=== PATIENT | male | born 1960 | race Caucasian/White ===

== ENCOUNTER 2020-09-11 19:56 | Observation (INO) | payer OTHER ==
[~2020-09-11] VITALS: Ht 170.2 cm; Wt 112.8 kg
[~2020-09-11 19:56] MED LIST: Cleocin HCl300 MG PO; FLUSAL2505 INH; IBUP400 PO; MECL12.5 PO; Norco 5-325 Ta1 EACH PO; WARF5 PO; XARELTO10 MG PO
[2020-09-11 20:31] LABS: BASOPHILS ABSOLUTE AUTO 0.02 K/mm3 (0.00-0.23); BASOPHILS PERCENT AUTO 0 % (0-2); EOSINOPHILS ABSOLUTE AUTO 0.01 K/mm3 (0.00-0.68); EOSINOPHILS PERCENT AUTO 0 % (0-6); Hematocrit 50.8 % (37.0-53.0); Hemoglobin 16.6 g/dL (13.5-17.5); IMMATURE GRAN ABSOLUTE AUTO 0.03 K/mm3 (0.00-0.10); IMMATURE GRAN PERCENT AUTO 0 % (0-1); LYMPHOCYTES ABSOLUTE AUTO 0.69 K/mm3 (0.84-5.20); LYMPHOCYTES PERCENT AUTO 10 % (21-46); MONOCYTES ABSOLUTE AUTO 0.57 K/mm3 (0.16-1.47); MONOCYTES PERCENT AUTO 8 % (4-13); Mean Corpuscular HGB 39.7 pg (26.0-34.0); Mean Corpuscular HGB Conc 32.7 g/dL (31.5-36.5); Mean Corpuscular Volume 122 fL (80-100); NEUTROPHILS ABSOLUTE AUTO 5.61 K/mm3 (1.96-9.15); NEUTROPHILS PERCENT AUTO 81 % (41-73); NRBC ABSOLUTE 0.02 K/mm3 (0.00-0.02); NRBC Auto 0.3 /100 WBC (0.0-0.2); Platelet Count 157 K/mm3 (150-400); RDW Coefficient Variation 14.7 % (11.7-14.2); RDW Standard Deviation 68.2 fL (35.1-46.3); Red Blood Cell Count 4.18 M/mm3 (4.30-5.90); White Blood Cell Count 6.93 K/mm3 (4.00-11.30)
[2020-09-11 21:07] LABS: Alanine Aminotransfer (ALT/SGP 25 U/L (12-78); Albumin, Blood 3.6 g/dL (3.4-5.0); Albumin/Globulin Ratio 0.9 (0.8-1.8); Alk Phos 77 U/L (50-136); Anion Gap 5 mmol/L (6-16); Aspartate Aminotrans (AST/SGOT 25 U/L (12-37); Bilirubin, Total 0.8 mg/dL (0.1-1.0); Blood Urea Nitrogen 15 mg/dL (8-24); Bun/Creatinine Ratio 18.6 (12.0-20.0); CO2, Blood 30 mmol/L (21-32); Calcium, Blood 8.6 mg/dL (8.5-10.1); Chloride, Blood 105 mmol/L (98-108); Creatinine, Blood 0.81 mg/dL (0.60-1.20); Globulin, Blood 4.2 g/dL (2.2-4.0); Glomerular Filtration Rate >60 (60-); Glucose, Blood 106 mg/dL (70-99); Potassium, Blood 4.6 mmol/L (3.5-5.5); Sodium, Blood 140 mmol/L (136-145); Total Protein, Blood 7.8 g/dL (6.4-8.2); Troponin I 0.057 ng/mL (0.000-0.040)
[2020-09-11 22:03] LABS: Base Excess Venous 10.4 mmol/L; Bicarbonate Venous 30.9 mmol/L (24.0-30.0); PCO2 Venous 72.1 mmHg (38-42); pH Blood Venous 7.31 (7.34-7.37)
[2020-09-12 04:27] LABS: BASOPHILS ABSOLUTE AUTO 0.02 K/mm3 (0.00-0.23); BASOPHILS PERCENT AUTO 0 % (0-2); EOSINOPHILS ABSOLUTE AUTO 0.06 K/mm3 (0.00-0.68); EOSINOPHILS PERCENT AUTO 1 % (0-6); Hematocrit 49.7 % (37.0-53.0); Hemoglobin 16.3 g/dL (13.5-17.5); IMMATURE GRAN ABSOLUTE AUTO 0.02 K/mm3 (0.00-0.10); IMMATURE GRAN PERCENT AUTO 0 % (0-1); LYMPHOCYTES ABSOLUTE AUTO 1.01 K/mm3 (0.84-5.20); LYMPHOCYTES PERCENT AUTO 17 % (21-46); MONOCYTES ABSOLUTE AUTO 0.53 K/mm3 (0.16-1.47); MONOCYTES PERCENT AUTO 9 % (4-13); Mean Corpuscular HGB 39.9 pg (26.0-34.0); Mean Corpuscular HGB Conc 32.8 g/dL (31.5-36.5); Mean Corpuscular Volume 122 fL (80-100); Mean Platelet Volume 10.4 fL (9.1-12.4); NEUTROPHILS ABSOLUTE AUTO 4.17 K/mm3 (1.96-9.15); NEUTROPHILS PERCENT AUTO 72 % (41-73); Platelet Count 129 K/mm3 (150-400); RDW Coefficient Variation 14.4 % (11.7-14.2); RDW Standard Deviation 66.4 fL (35.1-46.3); Red Blood Cell Count 4.09 M/mm3 (4.30-5.90); White Blood Cell Count 5.81 K/mm3 (4.00-11.30)
--- NOTE | 2020-09-12 04:30 | NUR ---
SHIFT SUMMARY ADMITTED FOR HYPOXIA. FULL CODE. I HAVE GIVEN IV LASIX THIS SHIFT. RT TX'S AVAILABLE. HX: COPD, POLYCYTHEMIA VERA, DVT'S, PE'S. HE IS ON 4 LPM O2 VIA NC, RA @ HOME. HE INFORMS ME THAT HE LIVES ALONE IN HIS [place].
[2020-09-12 04:45] LABS: Alanine Aminotransfer (ALT/SGP 22 U/L (12-78); Albumin, Blood 3.5 g/dL (3.4-5.0); Albumin/Globulin Ratio 0.8 (0.8-1.8); Alk Phos 74 U/L (50-136); Anion Gap 3 mmol/L (6-16); Aspartate Aminotrans (AST/SGOT 19 U/L (12-37); Bilirubin, Total 0.7 mg/dL (0.1-1.0); Blood Urea Nitrogen 14 mg/dL (8-24); CO2, Blood 35 mmol/L (21-32); Calcium, Blood 8.5 mg/dL (8.5-10.1); Chloride, Blood 99 mmol/L (98-108); Creatinine, Blood 0.82 mg/dL (0.60-1.20); Globulin, Blood 4.2 g/dL (2.2-4.0); Glomerular Filtration Rate >60 (60-); Glucose, Blood 96 mg/dL (70-99); Potassium, Blood 4.2 mmol/L (3.5-5.5); Sodium, Blood 137 mmol/L (136-145); Total Protein, Blood 7.7 g/dL (6.4-8.2)
[2020-09-12 04:46] LABS: Troponin I 0.021 ng/mL (0.000-0.040)
[2020-09-12 13:07] LABS: Troponin I 0.016 ng/mL (0.000-0.040)
--- NOTE | 2020-09-13 04:16 | NUR ---
SHIFT SUMMARY ADMITTED FOR HYPOXIA. FULL CODE. TELEMETRY: NSR @ 84 BPM. SLEEP STUDY WAS ATTEMPTED THIS SHIFT BUT PT WAS AWAKE AND CALLING OUT RANDOMLY FOR MOST OF THE SHIFT; SO WE ARE UNSURE OF THE SUCCESS OF THAT ENDEAVOR. AT ONE POINT HE DESATURATED TO 70% AND RT PUT HIM ON 5 LPM O2. HE HAS LABILE MOODS AND HAS DIFFICULTY FOLLOWING/UNDERSTANDING INSTRUCTION. HE REFUSED LASIX ON THE PREVIOUS SHIFT. PLAN IS FOR HOME O2 EVAL, CARDIAC STRESS TEST (INPT VS. OUTPT), AND DIURESIS. HE IS ON XARELTO AND IS ALSO SCHEDULED LOVENOX, WHICH HE HAS EXPRESSED CONCERN OVER HAVING BOTH - REPORTED TO ME FROM PREVIOUS SHIFT.
[2020-09-13 08:31] LABS: Anion Gap 0 mmol/L (6-16); Blood Urea Nitrogen 16 mg/dL (8-24); Bun/Creatinine Ratio 20.9 (12.0-20.0); CO2, Blood 41 mmol/L (21-32); Calcium, Blood 8.8 mg/dL (8.5-10.1); Chloride, Blood 97 mmol/L (98-108); Creatinine, Blood 0.77 mg/dL (0.60-1.20); Glomerular Filtration Rate >60 (60-); Glucose, Blood 117 mg/dL (70-99); Potassium, Blood 4.3 mmol/L (3.5-5.5); Sodium, Blood 138 mmol/L (136-145)
--- NOTE | 2020-09-13 12:45 | NUR ---
DISCHARGE SUMMARY PT AxOx4. DC'ING TO HOME TODAY. DC'ING ON 5L CONT O2 VIA NC. DC INSTRUCTIONS DISCUSSED, INCLUDING DC MEDS/CHANGES AND FOLLOW UP APPOINTMENTS. PT VERBALIZES UNDERSTANDING. [facility] IN ROOM DELIVERING HOME O2. VITALS REVIEWED. PT DENIES PAIN/OTHER NEEDS AT THIS TIME. PT SAFELY ESCORTED OUT VIA WC WITH [employer].
== END 2020-09-13 12:55 | disposition home or self-care (01) ==
LOC: ER 19:56 → MEDS 19:58 → ER 09-12 00:20 → MEDS 09-12 00:20 → ER 09-12 01:25 → MEDS 09-12 02:10
PROVIDERS: Hospitalist; Physician Assistant; Student in an Organized Health Care Education/Training Program; ADMIT Internal Medicine
DX: R09.02 Hypoxemia (principal); R06.89 Other abnormalities of breathing; J44.9 Chronic obstructive pulmonary disease, unspecified; E78.5 Hyperlipidemia, unspecified; D45 Polycythemia vera; R77.8 Other specified abnormalities of plasma proteins; Z86.711 Personal history of pulmonary embolism; Z79.01 Long term (current) use of anticoagulants; Z86.718 Personal history of other venous thrombosis and embolism; Z87.891 Personal history of nicotine dependence
CPT/HCPCS: 36415; 71260; 80048; 80053; 82550; 82803; 83880; 84484; 85025; 93005; 93010; 94640; 94760; 94761; 94762; 96372; 96374; 96376; 99285-25; A9270; C8929; G0378; J1650; J1940; Q9957; Q9967

== ENCOUNTER 2020-09-18 13:56 | Observation (INO) | payer OTHER ==
[~2020-09-18] VITALS: Ht 180.3 cm; Wt 113.3 kg
[2020-09-18 14:42] LABS: BASOPHILS ABSOLUTE AUTO 0.03 K/mm3 (0.00-0.23); BASOPHILS PERCENT AUTO 1 % (0-2); EOSINOPHILS ABSOLUTE AUTO 0.04 K/mm3 (0.00-0.68); EOSINOPHILS PERCENT AUTO 1 % (0-6); Hematocrit 50.4 % (37.0-53.0); Hemoglobin 16.3 g/dL (13.5-17.5); IMMATURE GRAN ABSOLUTE AUTO 0.02 K/mm3 (0.00-0.10); IMMATURE GRAN PERCENT AUTO 0 % (0-1); LYMPHOCYTES ABSOLUTE AUTO 0.58 K/mm3 (0.84-5.20); LYMPHOCYTES PERCENT AUTO 13 % (21-46); MONOCYTES ABSOLUTE AUTO 0.45 K/mm3 (0.16-1.47); MONOCYTES PERCENT AUTO 10 % (4-13); Mean Corpuscular HGB 39.5 pg (26.0-34.0); Mean Corpuscular HGB Conc 32.3 g/dL (31.5-36.5); Mean Corpuscular Volume 122 fL (80-100); Mean Platelet Volume 11.2 fL (9.1-12.4); NEUTROPHILS PERCENT AUTO 75 % (41-73); Platelet Count 140 K/mm3 (150-400); RDW Coefficient Variation 13.1 % (11.7-14.2); RDW Standard Deviation 60.3 fL (35.1-46.3); Red Blood Cell Count 4.13 M/mm3 (4.30-5.90); White Blood Cell Count 4.52 K/mm3 (4.00-11.30)
[2020-09-18 15:07] LABS: Alanine Aminotransfer (ALT/SGP 22 U/L (12-78); Albumin, Blood 3.6 g/dL (3.4-5.0); Albumin/Globulin Ratio 0.9 (0.8-1.8); Alk Phos 58 U/L (50-136); Anion Gap 0 mmol/L (6-16); Aspartate Aminotrans (AST/SGOT 24 U/L (12-37); Blood Urea Nitrogen 12 mg/dL (8-24); Bun/Creatinine Ratio 16.9 (12.0-20.0); CO2, Blood 43 mmol/L (21-32); Calcium, Blood 9.1 mg/dL (8.5-10.1); Chloride, Blood 94 mmol/L (98-108); Creatinine, Blood 0.71 mg/dL (0.60-1.20); Globulin, Blood 4.2 g/dL (2.2-4.0); Glomerular Filtration Rate >60 (60-); Glucose, Blood 109 mg/dL (70-99); Potassium, Blood 4.1 mmol/L (3.5-5.5); Sodium, Blood 137 mmol/L (136-145); Total Protein, Blood 7.8 g/dL (6.4-8.2); Troponin I <0.015 ng/mL (0.000-0.040)
[2020-09-18 16:28] LABS: Base Excess Venous 21.4 mmol/L; Bicarbonate Venous 39.7 mmol/L (24.0-30.0); PCO2 Venous 88.7 mmHg (38-42); PO2 Venous 55.8 mmHg (38-42); pH Blood Venous 7.34 (7.34-7.37)
[2020-09-18 16:49] LABS: Source, Urine Clean Catch
[2020-09-18 16:52] LABS: Appearance, Urine Clear (Clear); Blood, Urine 4+ (Neg); Color, Urine Amber (P-Yellow); Glucose Qualitative, Urine Neg (Neg); Ketones, Urine 4+ (Neg); Leukocyte Esterase, Urine 1+ (Neg); Nitrite, Urine Neg (Neg); Protein, Urine 4+ (Neg); Specific Gravity, Urine 1.015 (1.003-1.022); Urobilinogen, Urine 2+ (Normal)
[2020-09-18 17:02] LABS: Bilirubin, Urine 1+ (Neg)
[2020-09-18 17:04] LABS: Bacteria Mod /hpf; Hyaline Casts 0-2 /lpf (0-2); Squamous Epithelial Cells Rare /hpf (Few); White Blood Cells, Urine 0-2 /hpf (0-5)
[2020-09-18 17:17] LABS: PCO2 Arterial 84.7 mmHg (35-45); PO2 Arterial 88.1 mmHg (80-100); pH Blood Arterial 7.35 (7.35-7.45)
[2020-09-18] MEDS ORDERED: ASMANEX HFA13 G1 INH (17:49)
[2020-09-18] MEDS ORDERED: SPIRIVA RESPIMAT4 G3 INH (17:50)
[2020-09-18] MEDS ORDERED: ALBU90OI6 INH (17:50)
[2020-09-18] MEDS ORDERED: ELIQUIS5 M3 PO (17:51)
[2020-09-18] MEDS ORDERED: FUROSEMIDE40 MG PO (17:51)
[2020-09-18] MEDS ORDERED: HYDURE500 PO (17:53)
[2020-09-18] MEDS ORDERED: Hydroxyurea500 MG PO (17:53)
[2020-09-18] MEDS ORDERED: Simvastatin20 MG PO (17:53)
[2020-09-18 19:56] LABS: U Amphetamine Screen Not Detected; U Barbituate Screen Not Detected; U Benzodiazapine Screen Not Detected; U Buprenorphine Screen Not Detected; U Cannabinoids Screen Not Detected; U Cocaine Screen Not Detected; U Methadone Screen Not Detected; U Methamphetamine Screen Not Detected; U Opiates Screen Not Detected; U Oxycodone Screen Not Detected; U Phencyclidine Screen Not Detected; U Propoxyphene Screen Not Detected
[2020-09-19 05:31] LABS: BASOPHILS ABSOLUTE AUTO 0.03 K/mm3 (0.00-0.23); BASOPHILS PERCENT AUTO 1 % (0-2); EOSINOPHILS ABSOLUTE AUTO 0.05 K/mm3 (0.00-0.68); EOSINOPHILS PERCENT AUTO 1 % (0-6); Hematocrit 47.9 % (37.0-53.0); Hemoglobin 15.6 g/dL (13.5-17.5); IMMATURE GRAN ABSOLUTE AUTO 0.02 K/mm3 (0.00-0.10); IMMATURE GRAN PERCENT AUTO 1 % (0-1); LYMPHOCYTES ABSOLUTE AUTO 0.64 K/mm3 (0.84-5.20); LYMPHOCYTES PERCENT AUTO 15 % (21-46); MONOCYTES ABSOLUTE AUTO 0.47 K/mm3 (0.16-1.47); MONOCYTES PERCENT AUTO 11 % (4-13); Mean Corpuscular HGB 39.5 pg (26.0-34.0); Mean Corpuscular HGB Conc 32.6 g/dL (31.5-36.5); Mean Corpuscular Volume 121 fL (80-100); NEUTROPHILS ABSOLUTE AUTO 3.01 K/mm3 (1.96-9.15); NEUTROPHILS PERCENT AUTO 71 % (41-73); Platelet Count 115 K/mm3 (150-400); RDW Coefficient Variation 12.7 % (11.7-14.2); RDW Standard Deviation 58.7 fL (35.1-46.3); Red Blood Cell Count 3.95 M/mm3 (4.30-5.90); White Blood Cell Count 4.22 K/mm3 (4.00-11.30)
--- NOTE | 2020-09-19 05:51 | NUR ---
PT IS A/O, ADMITTED THIS SHIFT TO ROOM 309. PT USES 4L AT HOME BASELINE VIA N/C, LUNGS HAVE WHEEZES T/O. USED URINAL AT BESIDE THIS SHIFT, TELE IN SR. PT WORKED WITH RT LAST NIGHT FOR CPAP WHICH HE TOLERATED FOR A SHORT TIME.
[2020-09-19 06:06] LABS: Alanine Aminotransfer (ALT/SGP 21 U/L (12-78); Albumin, Blood 3.3 g/dL (3.4-5.0); Albumin/Globulin Ratio 0.9 (0.8-1.8); Alk Phos 55 U/L (50-136); Anion Gap 1 mmol/L (6-16); Aspartate Aminotrans (AST/SGOT 23 U/L (12-37); Bilirubin, Total 0.8 mg/dL (0.1-1.0); Blood Urea Nitrogen 13 mg/dL (8-24); CO2, Blood 43 mmol/L (21-32); Calcium, Blood 8.5 mg/dL (8.5-10.1); Chloride, Blood 93 mmol/L (98-108); Creatinine, Blood 0.68 mg/dL (0.60-1.20); Globulin, Blood 3.7 g/dL (2.2-4.0); Glomerular Filtration Rate >60 (60-); Glucose, Blood 102 mg/dL (70-99); Sodium, Blood 137 mmol/L (136-145)
[2020-09-19] MEDS ORDERED: ATOR20 PO (14:39)
[2020-09-19] MEDS ORDERED: Deltasone 10 mg10 MG PO (14:41)
--- NOTE | 2020-09-19 17:00 | NUR ---
DISCHARGE SUMMARY PT AxOx3 WITH OCCASIONAL CONFUSION. MENTATION SEEMED TO CLEAR SOME THROUGHOUT THE DAY, BUT PATIENT DOES HAVE DIFFICULTY COMPREHENDING BASIC INTERVENTIONS/INSTRUCTIONS AND PLAN OF CARE. PT'S FRIEND/FAMILY MEMBER, ROBERT JONES WAS HERE PRIOR TO DISCHARGE. ROBERT JONES AND PATIENT SPOKE WITH DR WALTON THIS AFTERNOON TO DISCUSS CARE PLAN. THIS RN DISCUSSED DC INSTRUCTIONS WITH PATIENT AND ROBERT JONES, INCLUDING DC MEDICATIONS, FOLLOW UP APPOINTMENTS WITH PCP, HOME HEALTH SERVICED, AND MEDICAL EQUIPMENT (HOME O2 AND INCENTIVE SPIROMETER). ADDITIONAL READABLE PT EDUCATION REGARDING PT'S DIAGNOSIS PROVIDED FOR TAKE HOME. PT AND ROBERT JONES VERBALIZE UNDERSTANDING. BOTH DENY ANY FURTHER QUESTIONS AT THIS TIME. VITALS REVIEWED. PT SAFELY ESCORTED OUT VIA WC WITH ROBERT JONES AND [facility].
== END 2020-09-19 17:01 | disposition home health service (06) ==
LOC: ER 13:56 → MEDS 13:57
PROVIDERS: Physician Assistant; ADMIT Internal Medicine
DX: I27.81 Cor pulmonale (chronic) (principal); J44.1 Chronic obstructive pulmonary disease with (acute) exacerbation; J96.22 Acute and chronic respiratory failure with hypercapnia; J96.21 Acute and chronic respiratory failure with hypoxia; I27.20 Pulmonary hypertension, unspecified; G92 Toxic encephalopathy; E78.5 Hyperlipidemia, unspecified; D45 Polycythemia vera; E87.2 Acidosis; Z91.14 Patient's other noncompliance with medication regimen; Z91.19 Patient's noncompliance with other medical treatment and regimen; Z99.81 Dependence on supplemental oxygen; Z86.718 Personal history of other venous thrombosis and embolism; Z87.891 Personal history of nicotine dependence; Z79.01 Long term (current) use of anticoagulants
CPT/HCPCS: 36415; 36600; 71045; 80053; 81001; 82140; 82803; 83880; 84484; 85025; 87086; 93005; 93010; 94640; 94660; 94762; 96374; 96376; 99285-25; A9270; G0378; J1940

== ENCOUNTER 2024-02-23 12:51 | Emergency (ER) | payer OTHER ==
[~2024-02-23] VITALS: Ht 172.7 cm; Wt 115.7 kg
[~2024-02-23 12:51] MED LIST changes: +ALBU90OI6 INH; +ASMANEX HFA13 G1 INH; +ATOR20 PO; +Deltasone 10 mg10 MG PO; +ELIQUIS5 M3 PO; +FUROSEMIDE40 MG PO; +HYDURE500 PO; +Hydroxyurea500 MG PO; +SPIRIVA RESPIMAT4 G3 INH; +Simvastatin20 MG PO
[2024-02-23 13:19] VITALS: BP 158/100
[2024-02-23] MEDS ORDERED: Robaxin750 MG PO ×2 (13:54→15:35)
[2024-02-23] MEDS ORDERED: Methocarbamol 500 MG Tab PO ONE (13:55)
== END 2024-02-23 14:14 | disposition home or self-care (01) ==
LOC: ER 12:51
DX: M62.830 Muscle spasm of back (principal); Z86.718 Personal history of other venous thrombosis and embolism; Z87.891 Personal history of nicotine dependence; Z59.89 Other problems related to housing and economic circumstances
CPT/HCPCS: 99283; A9270